=== PATIENT | female | born 1985 ===

== ENCOUNTER 2017-04-02 14:40 | Emergency (ER) | payer OTHER ==
[2017-04-02] MEDS ORDERED: Sodium Chloride 0.9% 1,000 ML IV STA (15:20)
[2017-04-02 15:46] LABS: BASO % 0.5 % (0.0-2.0); EOS # 0.1 K/uL (0.0-0.7); EOS % 1.1 % (0.0-4.0); LYMPH # 1.8 K/uL (1.0-4.3); MEAN CELL VOLUME 81.3 fl (81.0-99.0); MEAN CORPUSCULAR HGB CONC 33.2 g/dL (33.0-37.0); MEAN PLATELET VOLUME 8.4 fl (7.2-11.7); MONO # 0.6 K/uL (0.0-0.8); MONO % 6.8 % (0.0-10.0); NEUT # 6.5 K/uL (1.8-7.0); NEUT % 71.6 % (50.0-75.0); NRBC % 0.1 % (0.0-0.0); RBC 4.46 Mil/uL (3.80-5.20); RED CELL DISTRIBUTION WIDTH 15.7 % (11.5-14.5); WHITE BLOOD COUNT 9.1 K/uL (4.8-10.8)
--- NOTE | 2017-04-02 15:51 | RAD ---
HISTORY: L chest pain COMPARISON: No prior. TECHNIQUE: Chest PA and lateral FINDINGS: LUNGS: No active pulmonary disease. PLEURA: No significant pleural effusion identified. No pneumothorax apparent. CARDIOVASCULAR: Normal. OSSEOUS STRUCTURES: No significant abnormalities. VISUALIZED UPPER ABDOMEN: Normal. OTHER FINDINGS: None. IMPRESSION: No active disease.
--- NOTE | 2017-04-02 15:52 | ED PDOC ---
HPI: Chest Pain Time Seen by Provider: 04/02/17 14:57 Chief Complaint (Nursing): Chest Pain Chief Complaint (Provider): Chest Pain History Per: Patient History/Exam Limitations: no limitations Onset/Duration Of Symptoms: Days (x 2 days), Intermittent Episodes Current Symptoms Are (Timing): Still Present Additional Complaint(s): Caron Mccall is a 31-year-old female who presents to the emergency department complaining of chest pain, shortness of breath, headache, and nausea, occurring intermittently since yesterday, 04/01/2017. Patient denies vomiting, calf tenderness, fever, and taking medical contraceptives. Past Medical History Reviewed: Historical Data, Nursing Documentation, Vital Signs Vital Signs: Last Vital Signs Temp 98.2 F 04/02/17 20:31 Pulse 79 04/02/17 20:31 Resp 16 04/02/17 20:31 BP 118/78 04/02/17 20:31 Pulse Ox 98 04/03/17 03:13 - Medical History PMH: No Chronic Diseases - Surgical History Surgical History: No Surg Hx - Family History Family History: States: Diabetes - Social History Current smoker - smoking cessation education provided: No Alcohol: Social Drugs: Denies - Home Medications Home Medications: Ambulatory Orders Medication Instructions Recorded Acetaminophen with Codeine 1 tab PO Q4 #0 tab 10/10/14 [Tylenol with Codeine No. 3 300 mg-30 mg] Ciprofloxacin HCl [Cipro] 500 mg PO BID #0 tab 10/10/14 Metronidazole [Flagyl] 500 mg PO QID #0 tab 10/10/14 - Allergies Allergies/Adverse Reactions: Allergies Allergy/AdvReac Type Severity Reaction Status Date / Time No Known Allergies Allergy Unverified 10/06/14 14:24 GREGORIO Risk Score for UA/NSTEMI - GREGORIO Risk Score Age > 64: NO 3 or more CAD Risk Factors: NO Known CAD (Stenosis greater than 50%): NO Aspirin use in past 7 days: NO Severe Angina: NO EKG ST changes greater than 0.5mm: NO Positive Cardiac Marker: NO GREGORIO Score: 0 Risk %: 5% Wells Criteria for PE - Wells Criteria for Pulmonary Embolism Clinical Signs and Symptoms of DVT: No P.E is #1 Diagnosis, or Equally Likely: No Heart Rate >100: No Immobilization at least 3 days;Surgery previous 4 weeks: No Previous, objectively diagnosed PE or DVT: No Hemoptysis: No Malignancy w/treatment within 6 months, or palliative: No Total Score: 0 Review of Systems ROS Statement: Except As Marked, All Systems Reviewed And Found Negative Constitutional: Negative for: Fever Cardiovascular: Positive for: Chest Pain Respiratory: Positive for: Shortness of Breath Gastrointestinal: Positive for: Nausea. Negative for: Vomiting Musculoskeletal: Negative for: Leg Pain (Calf pain) Neurological: Positive for: Headache Physical Exam - Reviewed Nursing Documentation Reviewed: Yes Vital Signs Reviewed: Yes - Physical Exam Appears: Positive for: Non-toxic, No Acute Distress Head Exam: Positive for: ATRAUMATIC, NORMAL INSPECTION, NORMOCEPHALIC Skin: Positive for: Normal Color, Warm, Dry Eye Exam: Positive for: Normal appearance Neck: Positive for: Normal, Painless ROM, Supple Cardiovascular/Chest: Positive for: Other (Tenderness to palpation to left chest wall). Negative for: Chest Non Tender Extremity: Positive for: Normal ROM. Negative for: Pedal Edema, Calf Tenderness Neurologic/Psych: Positive for: Alert, Oriented - Laboratory Results Result Diagrams: 04/02/17 15:38 04/02/17 15:38 - ECG Interpretation Of EC:57 Normal sinus rhythm, at 85 bpm, no ST changes. O2 Sat by Pulse Oximetry: 98 (RA) Pulse Ox Interpretation: Normal - Radiology X-Ray: Read By Radiologist X-Ray Interpretation: No Acute Disease Medical Decision Making Medical Decision Making: Time: 14:57 Initial impression: Chest Pain Initial plan: --EKG --ED Urine --ED Urine Dipstick Time: 15:19 --CMP --Troponin I --CBC --D Dimer --PTT --Prothrombin Time --CXR --Sodium chloride 1000 mL IV at 1000 mL/hr --Zofran 4 mg IV --Reevaluation Time: 15:41 --Chest X-ray FINDINGS: LUNGS: No active pulmonary disease. PLEURA: No significant pleural effusion identified. No pneumothorax apparent. CARDIOVASCULAR: Normal. OSSEOUS STRUCTURES: No significant abnormalities. VISUALIZED UPPER ABDOMEN: Normal. OTHER FINDINGS: None. IMPRESSION: No active disease. Scribe Attestation: Documented by Tiffani Camilo, acting as a scribe for Cristina Zapata MD. Provider Scribe Attestation: All medical record entries made by the Scribe were at my direction and personally dictated by me. I have reviewed the chart and agree that the record accurately reflects my personal performance of the history, physical exam, medical decision making, and the department course for this patient. I have also personally directed, reviewed, and agree with the discharge instructions and disposition. Disposition - Clinical Impression Clinical Impression: Atypical chest pain - Disposition Referrals: [facility] [Outside] Disposition: Transfer of Care Disposition Time: 19:00 Condition: STABLE Instructions: Noncardiac Chest Pain (ED) Patient Signed Over To: Rafat Scott Handoff Comments: Pending CT.
[2017-04-02 16:00] LABS: ALB/GLOB RATIO 1.2 (1.0-2.1); ALBUMIN 4.3 g/dL (3.5-5.0); ALT/SGPT 31 U/L (9-52); AST/SGOT 21 U/L (14-36); BLOOD UREA NITROGEN 11 mg/dl (7-17); CALCIUM 9.2 mg/dL (8.4-10.2); GFR AFRICAN-AMERICAN > 60; GFR NON-AFRICAN AMERICAN > 60
[2017-04-02] MEDS ORDERED: Potassium Chloride 20 mEq ER Tab PO STA (16:24)
[2017-04-02 16:59] LABS: INR 1.1 (0.9-1.2); PROTHROMBIN TIME 11.9 Seconds (9.8-13.1)
--- NOTE | 2017-04-02 19:18 | ED PDOC ---
- Laboratory Results Result Diagrams: 04/02/17 15:38 04/02/17 15:38 - ECG O2 Sat by Pulse Oximetry: 98 (RA) - CT Scan/US CT chest Other Rad Studies (CT/US): Read By Radiologist, Radiology Report Reviewed (see [facility] for interpretation) Medical Decision Making Medical Decision Makin:00 Patient is signed out to me by Cristina Zapata MD pending chest CT, reevaluation , and final disposition. 20:15 CT chest read and reviewed by radiologist FINDINGS: Pulmonary arteries: No evidence of pulmonary embolism. Aorta: Cardiac motion limits assessment of the ascending aorta. The aorta is otherwise unremarkable. No thoracic aortic aneurysm. Lungs: No focal pneumonia or acute pulmonary opacity. Pleural space: No significant pleural effusion. No pneumothorax. Heart: No cardiomegaly or pericardial effusion. Bones/joints: No acute fracture. Soft tissues: Unremarkable. Lymph nodes: No adenopathy. Upper abdomen: No acute findings in the upper abdomen. IMPRESSION: No evidence of pulmonary embolism 22:40 Upon provider reevaluation, patient's symptoms have resolved. Patient does not have a PMD and will be referred to the clinic for a follow up. Scribe Attestation: Documented by Rose Suarez, acting as a scribe for Rafat Scott MD. Provider Scribe Attestation: All medical record entries made by the Scribe were at my direction and personally dictated by me. I have reviewed the chart and agree that the record accurately reflects my personal performance of the history, physical exam, medical decision making, and the department course for this patient. I have also personally directed, reviewed, and agree with the discharge instructions and disposition. Disposition - Clinical Impression Clinical Impression: Atypical chest pain - POA Present On Arrival: None - Disposition Referrals: [facility] [Outside] Disposition: Routine/Home Disposition Time: 22:40 Condition: IMPROVED Instructions: Noncardiac Chest Pain (ED)
[2017-04-02] MEDS ORDERED: Sodium Chloride 0.9% 50 ML IV ONE (19:26)
[2017-04-02] MEDS ORDERED: Iohexol 300 100 ML IJ ONE (19:26)
[2017-04-02 20:31] VITALS: BP 118/78; PULSE 79; RESP 16; TEMP 98.2
[2017-04-02] MEDS ORDERED: Potassium Chloride 20 mEq ER Tab PO ONE (20:33)
[2017-04-02 20:44] VITALS: O2SAT 98
--- NOTE | 2017-04-03 08:22 | CARD ---
APPROVED REPORT EKG Measurement Heart [id number] <Conclusion> Normal sinus rhythm Normal ECG
--- NOTE | 2017-04-03 11:02 | CT ---
PROCEDURE: CT Chest with contrast (Pulmonary Angiogram) HISTORY: CP, SOB COMPARISON: None available. TECHNIQUE: Axial computed tomography images were obtained of the chest in the pulmonary arterial phase of enhancement. Coronal and sagittal reformatted images were created and reviewed. Maximum intensity projection (MIP) reconstructed images in the following planes: Axial projection only. Intravenous contrast dose: 90 cc Omnipaque 300 Mean Hounsfield unit values in the main pulmonary artery: 148.33 Radiation dose: Total exam DLP = 393.32 mGy-cm. This CT exam was performed using one or more of the following dose reduction techniques: Automated exposure control, adjustment of the mA and/or kV according to patient size, and/or use of iterative reconstruction technique. FINDINGS: PULMONARY ARTERIES: Unremarkable. No pulmonary embolism. Limitations of the current examination: Nondiagnostic assessment beyond segmental level. AORTA: No acute findings. No thoracic aortic aneurysm. LUNGS: Unremarkable. No nodule, mass or pulmonary consolidation. PLEURAL SPACES: Unremarkable. No effusion or pneuomothorax. HEART: Unremarkable. No cardiomegaly. No significant pericardial effusion. LYMPH NODES: No lymphadenopathy. BONES, CHEST WALL: Unremarkable. No fracture or destructive lesion OTHER FINDINGS: Unremarkable. IMPRESSION: Unremarkable CT pulmonary angiogram. No pulmonary embolus. For central bolus, opacification of pulmonary arteries precludes optimal assessment beyond the segmental branches. Concordant results (preliminary interpretation) provided by [employer]. Procedure Completed: 19:40. Preliminary ([facility]) Report: Dictated and Authenticated: 20:15. Final Interpretation: 11:00. April 03, 2017.
== END 2017-04-02 21:07 | disposition home or self-care (01) ==
LOC: H.ER 14:40
DX: R07.9 Chest pain, unspecified (principal)

== ENCOUNTER 2017-12-30 12:11 | Emergency (ER) | payer OTHER ==
[2017-12-30 12:20] VITALS: BMI 26.2
[2017-12-30 12:22] VITALS: RESP 18
--- NOTE | 2017-12-30 12:49 | ED PDOC ---
HPI: Chest Pain Time Seen by Provider: 12/30/17 12:31 Chief Complaint (Nursing): Chest Pain History Per: Patient History/Exam Limitations: no limitations Onset/Duration Of Symptoms: Other (1 month) Additional Complaint(s): 32 yo F w/ no PMH, presents c/o L mid sternal CP, worse with movement, palpation and radiates to the back, mostly occurring at night prior to falling asleep. Patient reports having similar symptoms in the past, reports being evaluated in this emergency room approximately 6 months ago for similar chest pain, states that she had diagnostic tests done which were within normal limits. Since her last visit here to the emergency room she has not had any follow-up with her primary care physician. Otherwise: (-) diaphoresis, (-) dyspnea, (-) pleuritic component, (-) ripping or tearing quality, (-) OCP use, ( -) fever, (-) cough, (-) exertional component, (-) dizziness, (-) syncope, (-) nausea, (-) vomiting, (-) calf swelling/pain, (-) neuro deficits. Past Medical History Vital Signs: Last Vital Signs Temp 98 F 12/30/17 15:24 Pulse 68 12/30/17 15:24 Resp 18 12/30/17 15:24 BP 108/62 12/30/17 15:24 Pulse Ox 99 12/30/17 15:24 - Family History Family History: States: Stroke (mother), Diabetes - Social History Current smoker - smoking cessation education provided: No Alcohol: Occasional Drugs: Denies - Home Medications Home Medications: Ambulatory Orders Medication Instructions Recorded Acetaminophen with Codeine 1 tab PO Q4 #0 tab 10/10/14 [Tylenol with Codeine No. 3 300 mg-30 mg] Ciprofloxacin HCl [Cipro] 500 mg PO BID #0 tab 10/10/14 Metronidazole [Flagyl] 500 mg PO QID #0 tab 10/10/14 - Allergies Allergies/Adverse Reactions: Allergies Allergy/AdvReac Type Severity Reaction Status Date / Time No Known Allergies Allergy Unverified 10/06/14 14:24 GREGORIO Risk Score for UA/NSTEMI - GREGORIO Risk Score Age > 64: NO 3 or more CAD Risk Factors: NO Known CAD (Stenosis greater than 50%): NO Aspirin use in past 7 days: NO Severe Angina: NO EKG ST changes greater than 0.5mm: NO GREGORIO Score: 0 Risk %: 5% Wells Criteria for PE - Wells Criteria for Pulmonary Embolism Clinical Signs and Symptoms of DVT: No P.E is #1 Diagnosis, or Equally Likely: No Heart Rate >100: No Immobilization at least 3 days;Surgery previous 4 weeks: No Previous, objectively diagnosed PE or DVT: No Hemoptysis: No Malignancy w/treatment within 6 months, or palliative: No Total Score: 0 Review of Systems Constitutional: Negative for: Fever, Chills, Malaise Cardiovascular: Positive for: Chest Pain. Negative for: Palpitations, Orthopnea , Edema Respiratory: Negative for: Cough, Shortness of Breath, Wheezing Gastrointestinal: Negative for: Nausea, Vomiting, Abdominal Pain Genitourinary Female: Negative for: Dysuria, Frequency, Hematuria Musculoskeletal: Negative for: Neck Pain, Arm Pain, Back Pain Skin: Negative for: Rash, Lesions, Jaundice Neurological: Negative for: Weakness, Numbness, Confusion Physical Exam - Reviewed Vital Signs Reviewed: Yes - Physical Exam Comments: GENERAL APPEARANCE: Patient is awake, alert, oriented x 3, in no acute distress. Patient laying in bed comfortably in no acute distress. SKIN: Warm, dry; (-) cyanosis. EYES: (-) conjunctival pallor. ENMT: Mucous membranes moist. NECK: (-) tenderness, (-) stiffness, (-) lymphadenopathy, (-) JVD. CHEST AND RESPIRATORY: (-) rash, (-) chest wall tenderness. Lungs: (-) rales , (-) rhonchi, (-) wheezes, (-) rub; breath sounds equal bilaterally. HEART AND CARDIOVASCULAR: (-) irregularity; (-) murmur, (-) gallop, (-) rub. ABDOMEN AND GI: Soft; (-) distention, (-) tenderness, (-) palpable pulsatile mass. EXTREMITIES: (-) deformity; (-) edema, (-) calf tenderness. (+) distal pulses. NEURO AND PSYCH: Mental status as above. Cranial nerves grossly intact; strength symmetric. - ECG O2 Sat by Pulse Oximetry: 98 Medical Decision Making Medical Decision Making: Previous medical records reviewed patient was last seen in this emergency room on 04/02/2017 for chest pain, during that evaluation patient had blood work done , she had a negative troponin, borderline positive d-dimer, normal EKG, normal chest x-ray, CT chest was done to rule out PE which was negative. Impression : Atypical chest pain, unlikely ACS Plan : [facility] E[facility]: NSR at 69 bpm, (-) acute ST changes, as read by PA. CXR: NAD, as read by PA On reevaluation, patient is sitting comfortably in bed in no acute distress, reports no additional complaints at this time. On exam, lungs are clear to auscultation, cardiac regular rate and rhythm. Vital signs stable. Diagnostic results discussed with the patient in great detail. Based on history, exam and diagnostic results plan will be for outpatient follow -up with PMD. Advised to follow up with primary care physician or the clinic in 1-2 days without fail. Advised to take medication as prescribed. Return to the emergency room at any time for any new or worsening symptoms. Patient states she fully agrees with and understands discharge instructions. States that she agrees with the plan and disposition. Verbalized and repeated discharge instructions and plan. I have given the patient opportunity to ask any additional questions. Disposition - Clinical Impression Clinical Impression: Chest pain - Patient ED Disposition Is Patient to be Admitted: No Counseled Patient/Family Regarding: Studies Performed, Diagnosis, Need For Followup - Disposition Referrals: [facility] [Outside] Disposition: Routine/Home Disposition Time: 14:30 Condition: STABLE Additional Instructions: Thank you for letting us take care of you today. You were treated for chest pain. The emergency medical care you received today was directed at your acute symptoms. Return to the Emergency Department if your symptoms worsen, do not improve, or if you have any other problems. Please contact your doctor in 2 days for re-evaluation and follow up / or call one of the physicians/clinics you have been referred to that are listed on the Patient Visit Information form that is included in your discharge packet. Bring any paperwork you were given at discharge with you along with any medications you are taking to your follow up visit. Our treatment cannot replace ongoing medical care by a primary care provider (PCP) outside of the emergency department. Thank you for allowing the [facility] team to be part of your care today. If you had an X-Ray : A Radiologist will review the ED reading if any change in treatment is needed we will contact you. Instructions: Chest Pain, Chest Pain That Is Not Caused by the Heart (DC) Forms: [employer] (Belarusian) - PA / BURRITO MAKER / Resident Statement MD/DO has reviewed & agrees with the documentation as recorded.
--- NOTE | 2017-12-30 14:42 | RAD ---
HISTORY: COMPARISON: 04/02/2017. TECHNIQUE: Chest PA and lateral FINDINGS: LINES AND TUBES: None. LUNG AND PLEURA: The lungs are well inflated and clear. HEART AND MEDIASTINUM: The heart is not enlarged. The hilar and mediastinal contours are within normal limits. SKELETAL STRUCTURES: The bony structures are within normal limits for the patient's age. VISUALIZED UPPER ABDOMEN: Normal. OTHER FINDINGS: None. IMPRESSION: No active pulmonary disease.
[2017-12-30 15:25] VITALS: BP 108/62; PULSE 68; TEMP 98
[2017-12-30 17:19] VITALS: O2SAT 98
== END 2017-12-30 15:25 | disposition home or self-care (01) ==
LOC: H.ER 12:11
DX: R07.9 Chest pain, unspecified (principal)

== ENCOUNTER 2018-03-07 09:26 | Emergency (ER) | payer OTHER ==
[2018-03-07 09:29] VITALS: BMI 27.4
[2018-03-07 09:31] VITALS: O2SAT 97
[2018-03-07] MEDS ORDERED: cefTRIAXone (Rocephin) 250 mg Inj IM ONE (11:00)
--- NOTE | 2018-03-07 11:01 | ED PDOC ---
HPI: Female Pain Time Seen by Provider: 03/07/18 09:45 Chief Complaint (Nursing): Female Genitourinary Chief Complaint (Provider): urinary genital discomfort History Per: Patient History/Exam Limitations: no limitations Onset/Duration Of Symptoms: Days (2 weeks) Current Symptoms Are (Timing): Still Present Severity: Mild Quality Of Discomfort: Burning, Pressure Associated Symptoms: Urinary Symptoms. denies: Fever, Chills, Nausea, Vomiting , Loss Of Appetite, Back Pain Alleviating Factors: None Additional Complaint(s): 32yo female LMP february 21 presents c/o urinary and genital discomfort with discharge and lesions noted about 2 weeks ago now mostly resolved to buttock and perineal area, sexually active 1 partner no barrier protection. No symptoms on partner. Also notes a persistent sore to hard pallate of mouth for more than a week. Last [employer] exam about 8 months ago. Denies fever, pelvic pain, back pain or vomiting. Past Medical History Reviewed: Historical Data, Nursing Documentation, Vital Signs Vital Signs: Last Vital Signs Temp 98.4 F 03/07/18 09:30 Pulse 77 03/07/18 09:30 Resp 16 03/07/18 09:30 BP 111/63 03/07/18 09:30 Pulse Ox 97 03/07/18 09:30 - Medical History PMH: No Chronic Diseases - Family History Family History: States: Stroke (mother), Diabetes - Home Medications Home Medications: Ambulatory Orders Medication Instructions Recorded Acetaminophen with Codeine 1 tab PO Q4 #0 tab 10/10/14 [Tylenol with Codeine No. 3 300 mg-30 mg] Ciprofloxacin HCl [Cipro] 500 mg PO BID #0 tab 10/10/14 Metronidazole [Flagyl] 500 mg PO QID #0 tab 10/10/14 - Allergies Allergies/Adverse Reactions: Allergies Allergy/AdvReac Type Severity Reaction Status Date / Time No Known Allergies Allergy Unverified 10/06/14 14:24 Review of Systems Constitutional: Negative for: Fever Cardiovascular: Negative for: Chest Pain Respiratory: Negative for: Shortness of Breath Gastrointestinal: Negative for: Abdominal Pain, Rectal Pain Genitourinary Female: Positive for: Dysuria, Frequency, Vaginal Discharge Musculoskeletal: Negative for: Neck Pain Skin: Positive for: Lesions. Negative for: Rash Neurological: Negative for: Weakness, Numbness Physical Exam - Reviewed Nursing Documentation Reviewed: Yes Vital Signs Reviewed: Yes - Physical Exam Appears: Positive for: Well, Non-toxic Head Exam: Positive for: ATRAUMATIC Skin: Positive for: Normal Color, Warm ENT: Positive for: Other (punctuate erythematous <0.5cm lesion L hard pallate no bleeding ) Gastrointestinal/Abdominal: Positive for: Normal Exam. Negative for: Tenderness , Guarding Pelvic Exam: Positive for: External Exam Normal, Cervicitis (trace), Discharge ( yellow/brown ), Lesions (healed to R buttock, nontender nonvesicular, small folliculitis appearing lesions to perineal area), Other (+IUD string in place). Negative for: Active Bleeding, Blood, Tender W/Cervical Motion, Tender Adnexa , Tender Uterus - ECG O2 Sat by Pulse Oximetry: 97 Medical Decision Making Medical Decision Making: Upreg neg treat empiric for G/C given discharge and symptoms check HIV, HSV and RPR followup results have partners tested/treated avoid sex until results return * update- patient refused empiric treatment w jennie, risks explained, states she wants to wait for results first. Disposition - Clinical Impression Clinical Impression: Female genitourinary symptoms - Patient ED Disposition Is Patient to be Admitted: No Counseled Patient/Family Regarding: Studies Performed - Disposition [facility] Disposition: Routine/Home Disposition Time: 11:04 Condition: STABLE Additional Instructions: Return to ER for any new or worsening symptoms. Have your partner tested and treated if indicated. You will be called in 2-3 days if your tests are positive. You refused empiric treatment of chlamydia and gonorrhea today. Its vital to followup for results in 2-3 days. See PRODUCTION RECORDER doctor for full exam and followup also. Instructions: Screening for Sexually Transmitted Infections, Vaginal Discharge in Adults Forms: [employer] (Albanian)
[2018-03-07 13:05] VITALS: BP 124/67; PULSE 76; RESP 18; TEMP 97.8
--- NOTE | 2018-03-09 10:09 | ED PDOC ---
ED Additional Note - Physician Additional Note Physician Additional Note: Urine C&S: Klebsiella Pneumoniae. No Abx prescribed. Called but no answer. Voicemail left. 2nd attempt to be made.
== END 2018-03-07 12:30 | disposition home or self-care (01) ==
LOC: H.ER 09:26
DX: B37.3 Candidiasis of vulva and vagina (principal); B96.1 Klebsiella pneumoniae [K. pneumoniae] as the cause of diseases classified elsewhere

== ENCOUNTER 2018-12-13 18:17 | Emergency (ER) | payer SELFPAY ==
[2018-12-13 18:18] VITALS: BMI 27.4
[2018-12-13 18:29] VITALS: RESP 18; O2SAT 100
[2018-12-13 19:36] LABS: BASO % 0.5 % (0.0-2.0); EOS % 0.5 % (0.0-4.0); LYMPH # 1.3 K/uL (1.0-4.3); LYMPH % 18.8 % (20.0-40.0); MEAN CELL VOLUME 88.8 fl (81.0-99.0); MEAN CORPUSCULAR HEMOGLOBIN 29.7 pg (27.0-31.0); MEAN CORPUSCULAR HGB CONC 33.4 g/dL (33.0-37.0); MEAN PLATELET VOLUME 8.6 fl (7.2-11.7); MONO # 0.5 K/uL (0.0-0.8); MONO % 7.3 % (0.0-10.0); NEUT # 5.2 K/uL (1.8-7.0); NEUT % 72.9 % (50.0-75.0); RBC 4.37 Mil/uL (3.80-5.20); RED CELL DISTRIBUTION WIDTH 14.7 % (11.5-14.5); WHITE BLOOD COUNT 7.1 K/uL (4.8-10.8)
[2018-12-13 19:51] LABS: BLOOD UREA NITROGEN 10 mg/dl (7-17); CALCIUM 9.8 mg/dL (8.4-10.2); GFR NON-AFRICAN AMERICAN > 60
--- NOTE | 2018-12-13 21:13 | ED PDOC ---
HPI: Chest Pain Time Seen by Provider: 12/13/18 18:34 Chief Complaint (Nursing): Chest Pain Chief Complaint (Provider): Chest Pain History Per: Patient History/Exam Limitations: no limitations Onset/Duration Of Symptoms: Hrs (this afternoon ) Current Symptoms Are (Timing): Still Present Severity: Moderate Additional Complaint(s): 33 year old female with no significant past medical history presents to the ED with left sided chest pain, shortness of breath, dizziness, and general weakness onset this afternoon. She reports pain is constant, non-radiating and not associated with movement. Patient denies any other complaints. PMD: None provided Past Medical History Reviewed: Historical Data, Nursing Documentation, Vital Signs Vital Signs: Last Vital Signs Temp 98.7 F 12/13/18 18:24 Pulse 101 H 12/13/18 18:38 Resp 18 12/13/18 18:24 BP 124/77 12/13/18 18:24 Pulse Ox 100 12/13/18 18:24 TEO Report Viewed: Yes - Medical History PMH: No Chronic Diseases Denies: Chronic Kidney Disease - Family History Family History: States: Stroke (mother), Diabetes - Social History Current smoker - smoking cessation education provided: No Alcohol: Social - Home Medications Home Medications: Ambulatory Orders Medication Instructions Recorded Acetaminophen with Codeine 1 tab PO Q4 #0 tab 10/10/14 [Tylenol with Codeine No. 3 300 mg-30 mg] Ciprofloxacin HCl [Cipro] 500 mg PO BID #0 tab 10/10/14 Metronidazole [Flagyl] 500 mg PO QID #0 tab 10/10/14 Valacyclovir HCl [Valtrex] 1,000 mg PO Q12 #20 tablet 03/13/18 - Allergies Allergies/Adverse Reactions: Allergies Allergy/AdvReac Type Severity Reaction Status Date / Time No Known Allergies Allergy Unverified 12/13/18 18:23 Review of Systems ROS Statement: Except As Marked, All Systems Reviewed And Found Negative Cardiovascular: Positive for: Chest Pain (left sided) Respiratory: Positive for: Shortness of Breath Neurological: Positive for: Weakness (general ), Dizziness Physical Exam - Reviewed Nursing Documentation Reviewed: Yes Vital Signs Reviewed: Yes - Physical Exam Appears: Positive for: Well, Non-toxic, No Acute Distress Head Exam: Positive for: ATRAUMATIC, NORMAL INSPECTION, NORMOCEPHALIC Skin: Positive for: Normal Color, Warm, DRY Eye Exam: Positive for: EOMI, Normal appearance, PERRL Neck: Positive for: Normal, Painless ROM, Supple Cardiovascular/Chest: Positive for: Regular Rate, Rhythm. Negative for: Murmur Respiratory: Positive for: Normal Breath Sounds. Negative for: Respiratory Distress Gastrointestinal/Abdominal: Positive for: Normal Exam, Soft. Negative for: Tenderness Back: Positive for: Normal Inspection. Negative for: L CVA Tenderness, R CVA Tenderness Extremity: Positive for: Normal ROM (upper and lower). Negative for: Calf Tenderness, Deformity, Swelling (legs) Neurological/Psych: Positive for: Awake, Alert, Normal Tone, Oriented. Negative for: Motor/Sensory Deficits, Facial Droop - Laboratory Results Result Diagrams: 12/13/18 19:31 12/13/18 19:31 Lab Results: D-Dimer, Quantitative 238 ng/mlDDU (0-230) H 12/13/18 19:31 - ECG O2 Sat by Pulse Oximetry: 100 (RA) Pulse Ox Interpretation: Normal Medical Decision Making Medical Decision Makin:34 MDM: * Workup of chest pain * low suspicion for cardiac etiology, * EKG normal sinus rhythm-83 BPM. * Basic Labs, * CXR, * reassess patient. 21:29: * Troponin normal * D dimer within normal limits * Wells crit score of 1.5 (low risk) * Heart score of 0 (low risk) * Pain improved with toradol * Flu swab pending Scribe Attestation: Documented by Martin Barger, acting as a scribe for Rose Barboza MD Provider Scribe Attestation: All medical record entries made by the Scribe were at my direction and personally dictated by me. I have reviewed the chart and agree that the record accurately reflects my personal performance of the history, physical exam, medical decision making, and the department course for this patient. I have also personally directed, reviewed, and agree with the discharge instructions and disposition. Disposition - Clinical Impression Clinical Impression: Atypical chest pain - Disposition Referrals: [facility] [Outside] Disposition Time: 20:37 Condition: IMPROVED Additional Instructions: Follow up with your primary medical doctor or the outpatient clinic in one week. Take Motrin or TYlenol for pain. Return to the emergency department if sym ptoms worsen or you develop new symptoms such as trouble breathing, dizziness, or weakness. Instructions: Chest Pain That Is Not Caused by the Heart (DC), Costochondritis (DC) Forms: [employer] (Indonesian) Print Language: SERBIAN
[2018-12-13 22:46] VITALS: BP 148/74; PULSE 64; TEMP 98.4
--- NOTE | 2018-12-14 10:07 | RAD ---
Date of service: 12/13/2018 HISTORY: Cough COMPARISON: Comparison chest dated 12/30/2017 TECHNIQUE: Chest PA and lateral views FINDINGS: LUNGS: No active pulmonary disease. PLEURA: No significant pleural effusion identified. No pneumothorax apparent. CARDIOVASCULAR: No aortic atherosclerotic calcification present. Normal cardiac size. No pulmonary vascular congestion. OSSEOUS STRUCTURES: No significant abnormalities. VISUALIZED UPPER ABDOMEN: Normal. OTHER FINDINGS: None. IMPRESSION: No active disease.
== END 2018-12-13 22:47 | disposition home or self-care (01) ==
LOC: H.ER 18:17
DX: R07.89 Other chest pain (principal)
CPT/HCPCS: 71046; 80048; 81025; 84484; 85025; 85378; 87804; 96374; 99284; J1885